=== PATIENT | female | born 1960 | race Caucasian/White ===

== ENCOUNTER 2021-07-23 14:30 | Observation (INO) ==
[2021-07-23 16:41] LABS: Basophils # (auto) 0.02 K/uL (0-0.2); Basophils % (auto) 0.3 %; Eosinophils # (auto) 0.06 K/uL (0-0.5); Eosinophils % (auto) 0.9 %; Hematocrit (blood only) 43.2 % (37-47); Hemoglobin 14.1 g/dL (12.0-16.0); Immature Granulocytes # (auto) 0.01 K/uL (0.00-0.02); Immature Granulocytes % (auto) 0.1 %; Lymphocytes # (auto) 1.76 K/uL (1.2-3.4); Lymphocytes % (auto) 25.1 %; Mean Corpuscular Hemoglobin 29.3 pg (25-34); Mean Corpuscular Hgb Conc 32.6 g/dL (32-36); Mean Corpuscular Volume 89.8 fL (80-100); Mean Platelet Volume 8.5 fL (7.4-10.4); Monocytes # (auto) 0.38 K/uL (0.11-0.59); Monocytes % (auto) 5.4 %; Neutrophils # (auto) 4.78 K/uL (1.4-6.5); Neutrophils % (auto) 68.2 %; Platelet Count 284 K/uL (130-400); RDW Coefficient of Variation 13.6 % (11.5-14.5); RDW Standard Deviation 45.2 fL (36.4-46.3); Red Blood Count 4.81 M/uL (4.2-5.4); White Blood Count 7.01 K/uL (4.8-10.8)
[2021-07-23 16:49] LABS: Appearance Urine Clear (Clear); Bacteria Urine Automated Negative (Negative); Bilirubin Urine Negative (Negative); Blood Urine Trace (Negative); Cast Urine Automated 0 /lpf (0-5); Color Urine Yellow; Glucose Urine UA Negative (Negative); Ketones Urine Negative (Negative); Leukocyte Esterase Urine 1+ (Negative); Nitrite Urine Negative (Negative); Protein Urine Negative (Negative); RBC Urine Automated 0-4 /hpf (0-4); Specific Gravity Urine 1.011 (1.000-1.030); Urobilinogen Urine Negative (Negative)
[2021-07-23 16:57] LABS: Albumin Level 4.1 gm/dl (3.4-5.0); Calcium 9.5 mg/dl (8.5-10.1); Creatinine Clr Calc Pharmacy 75.7 ml/min; Potassium 3.6 mmol/L (3.5-5.1)
--- NOTE | 2021-07-23 16:59 | CT Scan Report ---
CT OF THE HEAD WITHOUT CONTRAST CLINICAL HISTORY: Confusion. COMPARISON STUDY: No previous studies for comparison. CT DOSE: 537.48 mGy.cm TECHNIQUE: Helical axial images of the head were obtained without IV contrast. Automated exposure con trol was utilized for the study. A dose lowering technique was utilized adhering to the principles o f ALARA. FINDINGS: No acute intracranial hemorrhage, midline shift or mass effect is present. The ventricular system is unremarkable. The basal cisterns are patent. No extra-axial collections are present. There are no findings to suggest acute dural sinus thrombosis or acute territorial infarct. No significant calvarial abnormalities are present. There is mild ethmoid sinus mucosal thickening. IMPRESSION: No acute intracranial findings. ACT 112: Negative or not required by law. Electronically signed by: Maksim Coffey M.D. 07/23/2021 4:57 PM
[2021-07-23 17:00] LABS: Albumin Globulin Ratio 1.1 (0.9-2); Bilirubin,Total 0.5 mg/dl (0.2-1); Globulin 3.9 gm/dl (2.5-4.0)
--- NOTE | 2021-07-23 20:35 | Emergency Department Note ---
Impression & Plan Acute confusion, Amnesia, Stroke-like symptoms, Hypertension ED Provider Note NAME: YESSENIA LUCIA AGE: 61 SEX: F : 1960 ARRIVES VIA: Walk-In INFORMANT: [Patient][daughter] ED PROVIDER(S): [Jose Luis White MD] CHIEF COMPLAINT: Confusion HISTORY OF PRESENT ILLNESS: The patient is a 61-year-old female presents to the ED with confusion and amnesia. Her symptoms have been ongoing for the entire day. The patient keeps asking her family the same questions and cannot seem to retain any memory. She went to work today even though, she was not scheduled for work. The patient admits that she cannot remember the day. The daughter thought the patient was staggering a bit today as well, no one- sided weakness noted She has been repeating herself all day. She has appeared confused at times. No issues with her speech, she has not had chest pain or shortness of breath. She has not suffered recent trauma. The patient admits to some stress in that her 4 months ago although, she does not think the is related to her presentation. She has not taken her hydrochlorothiazide for blood pressure in several weeks. 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 The patient is not vaccinated for COVID-19 or influenza. REVIEW OF SYSTEMS: See HPI for pertinent positives and negatives. A total of ten systems were reviewed and were otherwise negative. PMHx/PSHx: See Below SOCIAL HISTORY: See Below. PHYSICAL EXAM: GENERAL: Patient is in no acute distress. HEENT: No acute trauma, normocephalic atraumatic, mucous membranes moist, no nasal congestion, no scleral icterus. NECK: No stridor, no adenopathy, no meningismus, trachea is midline. LUNGS: Clear to auscultation bilaterally, no wheeze, no rhonchi, breath sounds equal. HEART: Without murmurs gallops or rubs, regular rate and rhythm. ABDOMEN: Soft, nontender, bowel sounds positive, no hernias, no peritonitis. EXTREMITIES: No cyanosis or edema, full range of motion of all the joints without pain or difficulty, no signs for acute trauma. NEUROLOGIC: Oriented x 3, no acute motor or sensory deficits, no focal weakness. No extremity drift or cerebellar dysfunction. No speech slur or facial droop. SKIN: No rash, no jaundice, no diaphoresis. DIFFERENTIAL DIAGNOSIS: Infection, dehydration, metabolic abnormality, hypo/hyperglycemia, electrolyte disturbance, anemia, hypoxia, cardiac sources, intracerebral event, toxicologic issues, stroke, TIA, transient global amnesia, as well as other pathologies. EMERGENCY DEPARTMENT COURSE/PROCEDURES: ECG: Indication was possible stroke. ECG shows a normal sinus rhythm with rate of 73. No ST elevation, no PVCs. There is some poor R wave progression. QTC is 447. Continuous Cardiac Monitoring: An order was placed for continuous cardiac monitoring. The monitor shows a rate of 98 with normal sinus rhythm. MEDICAL DECISION MAKING: There is no leukocytosis or concerning anemia. There is a normal platelet count. No significant electrolyte abnormality or kidney failure. No worrisome liver enzyme elevation. Urinalysis does not show evidence for infection. Covid testing returned negative. Brain CT shows no acute bleed or mass-effect. ECG shows a normal sinus rhythm, no dysrhythmia or ischemia. On exam, there were no focal neurologic findings. Patient was a bit hypertensive, she was not toxic or febrile. No speech slur noted. The patient was given oral aspirin. She has been resting comfortably. Patient presents with some confusion and amnesia. I discussed the case with neurology. The patient's presentation is consistent with transient global amnesia. Further work-up though is required. Hospitalization was felt warranted. I spoke to the patient about a hospital stay, she did consent. I spoke to case management. The on-call hospitalist was consulted. Past Med/Surg History Medical History Hypertension Social History Smoking Status: Never smoker Feels Safe at Home: Yes Allergies Allergies Allergy/AdvReac Type Severity Reaction Status Date / Time erythromycin base AdvReac Severe Gastrointestinal Verified 07/23/21 20:37 Upset Home Meds Home Medications Medication Instructions Recorded Confirmed guaifenesin 1,200 mg tablet, 1,200 mg PO Q12H PRN 07/23/21 07/23/21 extended release 12 hr (Mucinex) hydrochlorothiazide 50 mg tablet 50 mg PO DAILY 07/23/21 07/23/21 potassium chloride 1 dose PO DAILY 07/23/21 07/23/21 Results & Data (ED) Vital Signs Vital Signs - 24 hr 07/23/21 15:01 Temperature 36.9 C Temperature Source Temporal Artery Scan Pulse Rate 108 H Respiratory Rate 18 Blood Pressure 170/88 H Blood Pressure Mean 115 Pulse Oximetry 98 Oxygen Delivery Method Room Air Sepsis Recent Fever Within 48 Hours No Sepsis New/Unexplained Change in Mental Status N/A Sepsis Action Taken by Nursing No Action Required Home Medications Current Medication List: was personally reviewed by me Laboratory Data Attestation: I reviewed the patient's lab results. Result diagrams: 07/23/21 16:27 07/23/21 16:27 Lab Results 07/23/21 07/23/21 07/23/21 Range/Units 16:27 16:27 16:27 WBC 7.01 (4.8-10.8) K/uL RBC 4.81 (4.2-5.4) M/uL Hgb 14.1 (12.0-16.0) g/dL Hct 43.2 (37-47) % MCV 89.8 (80-100) fL MCH 29.3 (25-34) pg MCHC 32.6 (32-36) g/dL RDW Std Deviation 45.2 (36.4-46.3) fL RDW Coeff of Tanisha 13.6 (11.5-14.5) % Plt Count 284 (130-400) K/uL MPV 8.5 (7.4-10.4) fL Immature Gran % (Auto) 0.1 % Neut % (Auto) 68.2 % Lymph % (Auto) 25.1 % Barbour % (Auto) 5.4 % Eos % (Auto) 0.9 % Baso % (Auto) 0.3 % Neut # (Auto) 4.78 (1.4-6.5) K/uL Lymph # (Auto) 1.76 (1.2-3.4) K/uL Barbour # (Auto) 0.38 (0.11-0.59) K/uL Eos # (Auto) 0.06 (0-0.5) K/uL Baso # (Auto) 0.02 (0-0.2) K/uL Immature Gran # (Auto) 0.01 (0.00-0.02) K/uL Sodium 141 (136-145) mmol/L Potassium 3.6 (3.5-5.1) mmol/L Chloride 111 H (98-107) mmol/L Carbon Dioxide 26 (21-32) mmol/L Anion Gap 4.0 (3-11) BUN 9 (7-18) mg/dl Creatinine 0.83 (0.6-1.2) mg/dl Est Cr Clr Drug Dosing 75.7 ml/min Est GFR ( Amer) 87.0 ml/min Est GFR (Non-Af Amer) 75.0 ml/min BUN/Creatinine Ratio 11.0 (10-20) Glucose 102 H (70-99) mg/dl Calcium 9.5 (8.5-10.1) mg/dl Total Bilirubin 0.5 (0.2-1) mg/dl AST 30 (15-37) U/L ALT 43 (12-78) Alkaline Phosphatase 71 (45-117) U/L Total Protein 8.0 (6.4-8.2) gm/dl Albumin 4.1 (3.4-5.0) gm/dl Globulin 3.9 (2.5-4.0) gm/dl Albumin/Globulin Ratio 1.1 (0.9-2) Urine Color Yellow Urine Appearance Clear (Clear) Urine pH 7.0 (4.5-7.5) Ur Specific Mobile 1.011 (1.000-1.030) Urine Protein Negative (Negative) Urine Glucose (UA) Negative (Negative) Urine Ketones Negative (Negative) Urine Blood Trace H (Negative) Urine Nitrite Negative (Negative) Urine Bilirubin Negative (Negative) Urine Urobilinogen Negative (Negative) Ur Leukocyte Esterase 1+ H (Negative) Urine WBC (Auto) 1-5 (0-5) /hpf Urine RBC (Auto) 0-4 (0-4) /hpf U Hyaline Cast (Auto) 0 (0-5) /lpf U Epithel Cells (Auto) 10-20 H (0-5) /lpf Urine Bacteria (Auto) Negative (Negative) SARS-CoV-2, RNA, NAAT (NEGATIVE) 07/23/21 Range/Units 21:24 WBC (4.8-10.8) K/uL RBC (4.2-5.4) M/uL Hgb (12.0-16.0) g/dL Hct (37-47) % MCV (80-100) fL MCH (25-34) pg MCHC (32-36) g/dL RDW Std Deviation (36.4-46.3) fL RDW Coeff of Tanisha (11.5-14.5) % Plt Count (130-400) K/uL MPV (7.4-10.4) fL Immature Gran % (Auto) % Neut % (Auto) % Lymph % (Auto) % Barbour % (Auto) % Eos % (Auto) % Baso % (Auto) % Neut # (Auto) (1.4-6.5) K/uL Lymph # (Auto) (1.2-3.4) K/uL Barbour # (Auto) (0.11-0.59) K/uL Eos # (Auto) (0-0.5) K/uL Baso # (Auto) (0-0.2) K/uL Immature Gran # (Auto) (0.00-0.02) K/uL Sodium (136-145) mmol/L Potassium (3.5-5.1) mmol/L Chloride (98-107) mmol/L Carbon Dioxide (21-32) mmol/L Anion Gap (3-11) BUN (7-18) mg/dl Creatinine (0.6-1.2) mg/dl Est Cr Clr Drug Dosing ml/min Est GFR ( Amer) ml/min Est GFR (Non-Af Amer) ml/min BUN/Creatinine Ratio (10-20) Glucose (70-99) mg/dl Calcium (8.5-10.1) mg/dl Total Bilirubin (0.2-1) mg/dl AST (15-37) U/L ALT (12-78) Alkaline Phosphatase (45-117) U/L Total Protein (6.4-8.2) gm/dl Albumin (3.4-5.0) gm/dl Globulin (2.5-4.0) gm/dl Albumin/Globulin Ratio (0.9-2) Urine Color Urine Appearance (Clear) Urine pH (4.5-7.5) Ur Specific Mobile (1.000-1.030) Urine Protein (Negative) Urine Glucose (UA) (Negative) Urine Ketones (Negative) Urine Blood (Negative) Urine Nitrite (Negative) Urine Bilirubin (Negative) Urine Urobilinogen (Negative) Ur Leukocyte Esterase (Negative) Urine WBC (Auto) (0-5) /hpf Urine RBC (Auto) (0-4) /hpf U Hyaline Cast (Auto) (0-5) /lpf U Epithel Cells (Auto) (0-5) /lpf Urine Bacteria (Auto) (Negative) SARS-CoV-2, RNA, NAAT NEGATIVE (NEGATIVE) Administered Medications Discontinued Medications Aspirin (Aspirin Chew 324 Mg) 324 mg PO NOW STA Stop: 07/23/21 20:39 Last Admin: 07/23/21 21:30 Dose: 324 mg Documented by: [id number] Imaging Data Radiologist's Impression: Head CT 07/23/21 16:39 CT OF THE HEAD WITHOUT CONTRAST CLINICAL HISTORY: Confusion. COMPARISON STUDY: No previous studies for comparison. CT DOSE: 537.48 mGy.cm TECHNIQUE: Helical axial images of the head were obtained without IV contrast. Automated exposure control was utilized for the study. A dose lowering technique was utilized adhering to the principles of ALARA. FINDINGS: No acute intracranial hemorrhage, midline shift or mass effect is present. The ventricular system is unremarkable. The basal cisterns are patent. No extra-axial collections are present. There are no findings to suggest acute dural sinus thrombosis or acute territorial infarct. No significant calvarial abnormalities are present. There is mild ethmoid sinus mucosal thickening. IMPRESSION: No acute intracranial findings. ACT 112: Negative or not required by law. Electronically signed by: Maksim Coffey M.D. 07/23/2021 4:57 PM Discharge Plan Visit Data Chief Complaint: Confusion Stated Complaint: CONFUSION, NECK AND BACK PAIN ED Provider: Jose Luis White Discharge Problem: Acute confusion, Amnesia, Stroke-like symptoms, Hypertension Patient Disposition: Admitted As Inpatient Condition: Fair Forms Stand Alone Forms: My [facility] Prescriptions Prescriptions: No Action hydrochlorothiazide 50 mg Tablet 50 mg PO DAILY RF: 0 Mucinex 1,200 mg Tablet Extended Release 12hr 1,200 mg PO Q12H PRN (Reason: Cold Symptoms) RF: 0 potassium chloride 1 dose PO DAILY RF: 0 Referrals Referrals: PCP,NO [Physician] -
[2021-07-23] MEDS ORDERED: ASPIRIN CHEW 324 MG PO STA (20:38)
[2021-07-23 23:43] LABS: Lyme Ab IgG w/WB Rflx Negative (Negative); Lyme Ab IgM w/WB Rflx Negative (Negative)
[2021-07-23 23:50] LABS: Thyroid Stimulating Hormone 0.916 uIu/ml (0.300-4.500)
--- NOTE | 2021-07-24 | History & Physical Report ---
Date of Service July 23, 2021 Assessment & Plan (1) Acute confusion: Plan: 61 F with hx of HTN (HCTZ, KCl) presenting with acute, first-time episode of confusion and amnesia: Confusion/Amnesia/Stroke-like symptoms Unclear etiology at present. Concern for TIA/stroke vs. transient global amnesia: -Head CT negative -CBC, BMP normal; UA nondiagnostic -TSH wnl -Negative Lyme IgG, IgM serology -Admitted to med-surg telemetry (c/f for undiagnosed atrial fibrillation) * Hypercoagulable workup (SLE, beta-2 glycoprotein IgG, IgM, cardiolipin) ordered, pending * Serum B12, folate pending * ESR, ADELAIDA pending * CXR pending (did not receive in ED) * MRI brain w/o contrast; read pending (no acute findings per STAT-RAD) * K+ 3.6: 20 mEq KCl PO x 2 * Neurology consult placed for further evaluation Hypertension Pt noncompliant with prescribed HCTZ x 2 months. Low suspicion of hypertensive encephalopathy given pt's reported normal home BPs, normal Cr on BMP. * Held home HCTZ, KCl * Not hypertensive at present; continue to monitor (2) Amnesia: (3) Stroke-like symptoms: (4) Hypertension: History of Present Illness Chief Complaint: Confusion Primary Care Provider: Alfred Dukes MD Caridad is a 61 year woman with a PMH of HTN (on HCTZ 50 mg) who was brought to the hospital by her daughter with an acute episodic presentation of confusion and amnesia of less than 1 day's duration. Patient interview impaired by limited memory of today's events- she remembers that she had a bowl of cereal in the morning and that she parked her car in the parking lot at work. Otherwise she has no other recollection of what she did today. Per her daughter, Brittany, who is bedside: the patient prepared for work as usual without any abnormal behavior. Some time later while at work, Brittany received a call from her mother's coworkers reporting strange behavior (repetitive statements, forgetting what she'd said minutes earlier, abnormal staggering gait). According to her daughter's conversations with her mother's coworkers, the patient had forgotten she was not scheduled to come in to work today as well. When daughter tried to take mother to her car, she did not recognize the car she drove to work or her clothes/other belongings inside and insisted otherwise for about 10 minutes before going home and presenting to the ED. Upon initial presentation to ED yodit, pt. unable to find ID card, which was in her hand, according to daughter who witnessed the event. ED: vitals notable for bp of 170/88, hr of 108. Initial labs (CBC, BMP, UA) nondiagnostic. Pt, received one-time aspirin dose, head CT (normal) Daughter denies witnessing any similar prior episodes. She notes at least 2 incidents a few months ago where her mother "stared into space and dropped her cup." She also notes that her mother has appeared more fatigued, particularly around dinnertime, since her . Pt. denies focal weakness, dysuria, dysphagia and vomiting/diarrhea. Pt. reports she ran out of HCTZ approximately 2 months ago and has not had time to refill her prescription. She reports that she routinely checks her BPs at home with cuff, with average pressures of 120s/90s. She also stopped taking her KCl after running out of HCTZ because she takes them together. According to daughter, mom has been lying about taking HCTZ the past 2 months. Patient's four months ago. According to her daughter, she returned to work after 1 week and has been working non-stop since. PMH also notable for rheumatic fever as a child, and hx of "hole in heart" that resolved before she turned 18. ROS+ only for fatigue and headache, both of which she attributes to her hunger. Patient lives at home with daughter and grandson and a dog. 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 Rarely drinks alcohol. Never smoker. She is not vaccinated against COVID-19. Allergies Allergy/AdvReac Type Severity Reaction Status Date / Time erythromycin base AdvReac Severe Gastrointestinal Verified 07/23/21 20:37 Upset Home Medications Medication Instructions Recorded Confirmed Type guaifenesin 1,200 mg tablet, 1,200 mg PO Q12H PRN 07/23/21 07/23/21 History extended release 12 hr (Mucinex) hydrochlorothiazide 50 mg tablet 50 mg PO DAILY 07/23/21 07/23/21 History potassium chloride 1 dose PO DAILY 07/23/21 07/23/21 History Past Med/Surg History Medical History Hypertension Social History Smoking Status: Never smoker Hx Alcohol Use: No Hx Substance Use: No Preferred Language: Kinyarwanda Communication Ability: Effective Aluminum Pourer Required: No Beliefs That Will Affect Care: None Current Living Situation: Family Current Living Situation Comment: with daughter Feels Safe at Home: Yes Assistive Devices: None Review of Systems Review of Systems: All systems reviewed & are unremarkable except as noted in HPI & below Physical Exam Constitutional: well developed and well nourished; no acute distress Eyes: PERRL, conjunctivae normal, anicteric sclerae ENMT: external ear and nose normal, oropharynx normal Respiratory: normal respiratory effort, lungs clear to auscultation Cardiovascular: RRR, no murmur, no edema Gastrointestinal (Abdomen): normal bowel sounds, soft, nontender, no hepatosplenomegaly Musculoskeletal: no cyanosis or clubbing, extremities motor strength 5/5 Skin: no rashes, warm and dry Neurologic: patellar DTR's 2+ bilat, sensation intact and PERRL, EOMI, accommodation nl, no face palsy, no dysarthria normal touch/pain/proprioception, CN's II-XI intact bilaterally, moves all extremities and awake; no focal motor deficits Motor/Sensory: no tremor and normal movement Gait: no ataxic gait, no shuffling gait and no wide-based gait Coordination: normal [id number] test and normal Romberg test Psychiatric: Orientation: alert, oriented to person, oriented to time and cooperative; + not oriented to place (pt thought she was at [facility]) Results & Data Results & Data ([facility]) Vital Signs (Past 12 Hours) Vital Signs Temp Pulse Resp BP Pulse Ox 07/23/21 15:01 36.9 C 108 H 18 170/88 H 98 Code Status & VTE Plan VTE Prophylaxis Plan VTE Prophylaxis will be ordered: Yes Supervising Physician Co-Signing Physician Notes Attending addendum: I have physically seen this patient, have supervised the medical residents activities, and agree with the H&P unless as otherwise noted. Assessment and Plan: Confusion/amnesia/strokelike symptoms- Differential improving not limited to: TIA, TGA, encephalopathy, infection versus metabolic The patient will be admitted to telemetry for serial cardiac enzymes, serial EKG's, cardiac rhythm monitoring and a 2-D echocardiogram with Dopplers. Stroke without TPA order set Start aspirin 81 mg daily after 324 loading dose MRI brain without contrast Arterial hypercoagulable work-up Check B12, folate, TSH, ESR, ADELAIDA Permissive hypertension Remaining orders and notations as noted Resident Activity Tracking Resident Involvement: Resident Care Provided Care Provided: Adult Hospital Medicine (1) Hypertension Hypertension type: unspecified Qualified Code(s): I10 - Essential (primary) hypertension
[2021-07-24] MEDS ORDERED: THIAMINE HCL 500 MG in SODIUM CHLORIDE 0.9% 50 ML IV STA (03:37)
[2021-07-24 04:28] LABS: Magnesium 2.4 mg/dl (1.8-2.4)
[2021-07-24] MEDS: POTASSIUM CHLORIDE CRTAB 20 MEQ TABCR PO SCH ×2 (05:48→08:22)
[2021-07-24 06:16] LABS: Folate (Folic Acid) > 20.00 ng/ml (>5.38); Vitamin B12 379 pg/ml (193-986)
--- NOTE | 2021-07-24 07:14 | Magnetic Resonance Report ---
MRI OF THE BRAIN WITHOUT IV CONTRAST CLINICAL HISTORY: Change in mental status. Amnesia. COMPARISON STUDY: CT of the brain dated 07/23/2021. TECHNIQUE: MRI of the brain was performed utilizing various T1 and T2-weighted sequences in the axial , sagittal, and coronal planes. IV contrast was not administered for this examination. FINDINGS: Brain parenchyma: There is mild microangiopathic change. There is no hemorrhage or mass effect. There is no restricted diffusion to suggest acute ischemia. Rodriguez-white matter differentiation is preserved . No extra-axial fluid collection is seen. The cerebellar tonsils are normal in configuration. Ventricles, sulci, and cisterns: Normal in configuration. Pituitary and sella: Unremarkable. Intracranial vasculature: Normal flow voids are maintained at the skull base. Orbits: The bony orbits are grossly intact. Orbital contents are normal in appearance. Sinuses and mastoids: There is mild to moderate mucosal thickening within the maxillary antra. Small air-fluid levels are noted. Mild to moderate mucosal thickening is also seen in the anterior ethmoid sinuses. There is mild mucosal thickening in the frontal sinuses. The mastoid air cells are clear. Calvarium: Unremarkable. Cervical cord: Partially visualized cervical spinal cord is normal in morphology and signal intensity . IMPRESSION: 1. No acute intracranial abnormality. 2. Paranasal sinus disease as above. ACT 112: Negative or not required by law. Electronically signed by: Jose Luis Castano M.D. 07/24/2021 7:13 AM
--- NOTE | 2021-07-24 07:19 | XRay Report ---
XR chest 2V PA/lateral CLINICAL HISTORY: Altered mental status. COMPARISON STUDY: No previous studies for comparison. FINDINGS: Lung volumes are normal. Lungs are clear. There is no pneumothorax or pleural effusion. Car diac size is normal. Mediastinal contours are normal. There is no evidence for pulmonary edema. IMPRESSION: No acute cardiopulmonary findings. ACT 112: Negative or not required by law. Electronically signed by: Maksim Coffey M.D. 07/24/2021 7:18 AM
--- NOTE | 2021-07-24 08:03 | Hospitalist Progress Note ---
Date of Service July 24, 2021 Assessment & Plan (1) Acute confusion: Plan: 61 F with hx of HTN (HCTZ, KCl) presenting with acute, first-time episode of confusion and amnesia: Confusion/Amnesia/Stroke-like symptoms Unclear etiology at present. Concern for TIA/stroke vs. transient global amnesia: -Head CT negative -CBC, BMP normal; UA nondiagnostic -TSH wnl -Negative Lyme IgG, IgM serology -Admitted to med-surg telemetry (c/f for undiagnosed atrial fibrillation) * Hypercoagulable workup (SLE, beta-2 glycoprotein IgG, IgM, cardiolipin) ordered, pending * Serum B12, folate pending * ESR, ADELAIDA pending * CXR pending (did not receive in ED) * MRI brain w/o contrast; read pending (no acute findings per STAT-RAD) * K+ 3.6: 20 mEq KCl PO x 2 * Neurology consult placed for further evaluation Hypertension Pt noncompliant with prescribed HCTZ x 2 months. Low suspicion of hypertensive encephalopathy given pt's reported normal home BPs, normal Cr on BMP. * Held home HCTZ, KCl * Not hypertensive at present; continue to monitor (2) Amnesia: (3) Stroke-like symptoms: (4) Hypertension: Admission and Anticipated Discharge Date Admission Date: July 23, 2021 Results & Data Results & Data ([facility]) Vital Signs (Past 12 Hours) Vital Signs Pulse Resp BP Pulse Ox 07/24/21 04:04 68 18 140/94 97 07/24/21 00:28 72 18 138/78 98 07/23/21 22:31 70 18 140/90 96 (1) Hypertension Hypertension type: unspecified Qualified Code(s): I10 - Essential (primary) hypertension
[2021-07-24 08:19] LABS: Basophils # (auto) 0.03 K/uL (0-0.2); Basophils % (auto) 0.5 %; Eosinophils # (auto) 0.26 K/uL (0-0.5); Eosinophils % (auto) 4.2 %; Hematocrit (blood only) 41.5 % (37-47); Hemoglobin 13.6 g/dL (12.0-16.0); Immature Granulocytes # (auto) 0.01 K/uL (0.00-0.02); Immature Granulocytes % (auto) 0.2 %; Lymphocytes % (auto) 31.9 %; Mean Corpuscular Hemoglobin 29.2 pg (25-34); Mean Corpuscular Hgb Conc 32.8 g/dL (32-36); Mean Corpuscular Volume 89.2 fL (80-100); Monocytes # (auto) 0.82 K/uL (0.11-0.59); Monocytes % (auto) 13.1 %; Neutrophils # (auto) 3.14 K/uL (1.4-6.5); Neutrophils % (auto) 50.1 %; Platelet Count 264 K/uL (130-400); RDW Coefficient of Variation 13.6 % (11.5-14.5); RDW Standard Deviation 44.6 fL (36.4-46.3); Red Blood Count 4.65 M/uL (4.2-5.4); White Blood Count 6.26 K/uL (4.8-10.8)
[2021-07-24 08:25] LABS: Calcium 8.9 mg/dl (8.5-10.1); Creatinine Clr Calc Pharmacy 89.8 ml/min; Est GFR (African American) 106.9 ml/min; Est GFR (Non-African American) 92.2 ml/min; Potassium 3.8 mmol/L (3.5-5.1)
[2021-07-24 09:21] LABS: Amphetamines+Metham, Urine Neg (Neg); Barbiturates, Urine Neg (Neg); Benzodiazepine, Urine Neg (Neg); Cocaine, Urine Neg (Neg); MDMA (Ecstacy), Urine Neg (Neg); Methadone, Urine Neg (Neg); Opiate, Urine Neg (Neg); Phencyclidine, Urine Neg (Neg)
--- NOTE | 2021-07-24 17:28 | Family Medicine Progress Note ---
Date of Service July 24, 2021 Assessment & Plan Admission and Anticipated Discharge Date Admission Date: July 23, 2021 Results & Data ([facility]) Vital Signs (Past 12 Hours) Vital Signs Pulse Resp BP Pulse Ox 07/24/21 14:59 67 16 129/84 100 07/24/21 13:12 77 18 127/84 98 07/24/21 11:10 70 18 127/84 97 07/24/21 08:25 96 H 18 140/94 96
--- NOTE | 2021-07-24 17:57 | Discharge Summary ---
Date of Service July 24, 2021 Admission HPI Per Admitting Provider Caridad is a 61 year woman with a PMH of HTN (on HCTZ 50 mg) who was brought to the hospital by her daughter with an acute episodic presentation of confusion and amnesia of less than 1 day's duration. Patient interview impaired by limited memory of today's events- she remembers that she had a bowl of cereal in the morning and that she parked her car in the parking lot at work. Otherwise she has no other recollection of what she did today. Per her daughter, Brittany, who is bedside: the patient prepared for work as usual without any abnormal behavior. Some time later while at work, Brittany received a call from her mother's coworkers reporting strange behavior (repetitive statements, forgetting what she'd said minutes earlier, abnormal staggering gait). According to her daughter's conversations with her mother's coworkers, the patient had forgotten she was not scheduled to come in to work today as well. When daughter tried to take mother to her car, she did not recognize the car she drove to work or her clothes/other belongings inside and insisted otherwise for about 10 minutes before going home and presenting to the ED. Upon initial presentation to ED yodit, pt. unable to find ID card, which was in her hand, according to daughter who witnessed the event. ED: vitals notable for bp of 170/88, hr of 108. Initial labs (CBC, BMP, UA) nondiagnostic. Pt, received one-time aspirin dose, head CT (normal) Daughter denies witnessing any similar prior episodes. She notes at least 2 incidents a few months ago where her mother "stared into space and dropped her cup." She also notes that her mother has appeared more fatigued, particularly around dinnertime, since her . Pt. denies focal weakness, dysuria, dysphagia and vomiting/diarrhea. Pt. reports she ran out of HCTZ approximately 2 months ago and has not had time to refill her prescription. She reports that she routinely checks her BPs at home with cuff, with average pressures of 120s/90s. She also stopped taking her KCl after running out of HCTZ because she takes them together. According to daughter, mom has been lying about taking HCTZ the past 2 months. Patient's four months ago. According to her daughter, she returned to work after 1 week and has been working non-stop since. PMH also notable for rheumatic fever as a child, and hx of "hole in heart" that resolved before she turned 18. ROS+ only for fatigue and headache, both of which she attributes to her hunger. Patient lives at home with daughter and grandson and a dog. 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 Rarely drinks alcohol. Never smoker. She is not vaccinated against COVID-19. Admission Exam Per Admitting Provider Constitutional: well developed and well nourished; no acute distress Eyes: PERRL, conjunctivae normal, anicteric sclerae ENMT: external ear and nose normal, oropharynx normal Respiratory: normal respiratory effort, lungs clear to auscultation Cardiovascular: RRR, no murmur, no edema Gastrointestinal (Abdomen): normal bowel sounds, soft, nontender, no hepatosplenomegaly Musculoskeletal: no cyanosis or clubbing, extremities motor strength 5/5 Skin: no rashes, warm and dry Neurologic: patellar DTR's 2+ bilat, sensation intact and PERRL, EOMI, accommodation nl, no face palsy, no dysarthria normal touch/pain/proprioception, CN's II-XI intact bilaterally, moves all extremities and awake; no focal motor deficits Motor/Sensory: no tremor and normal movement Gait: no ataxic gait, no shuffling gait and no wide-based gait Coordination: normal wcqkdu-de-ivvy test and normal Romberg test Psychiatric: Orientation: alert, oriented to person, oriented to time and cooperative; + not oriented to place (pt thought she was at [facility]) Principal Diagnosis Transient Global Amnesia Discharge Exam Constitutional WD/WN, vitals as above Eyes PERRL, conjunctivae normal, anicteric sclerae Neck trachea midline, no thyromegaly Respiratory normal respiratory effort, lungs clear to auscultation Cardiovascular RRR, no murmur, no edema Heart Sounds: normal S1 and normal S2 Gastrointestinal (Abdomen) normal bowel sounds, soft, nontender, no hepatosplenomegaly Musculoskeletal no cyanosis or clubbing, extremities motor strength 5/5 Gait: normal gait Skin no rashes, warm and dry Neurologic patellar DTR's 2+ bilat, sensation intact and PERRL, EOMI, accommodation nl, no face palsy, no dysarthria CN 2-12 intact b/l Psychiatric A+Ox3, euthymic affect Discharge Data Allergies Allergy/AdvReac Type Severity Reaction Status Date / Time erythromycin base AdvReac Severe Gastrointestinal Verified 07/23/21 20:37 Upset Consultations 07/23/21 20:33 ED Decision to Admit Stat 07/24/21 04:25 Consult Neurology Routine Ordered Studies 07/23/21 16:39 CT head/brain wo con Stat 07/23/21 23:21 MR brain wo con Stat Hospital Course (1) Acute confusion: 61 F with hx of HTN (HCTZ, KCl) presenting with acute, first-time episode of confusion and amnesia: Transient Global Amnesia Unclear etiology. Concern for TIA/stroke vs. transient global amnesia. Head CT negative, Brain MRI negtive, CXR negative. CBC, BMP normal; UA nondiagnostic. TSH wnl. Negative Lyme IgG, IgM serology. Admitted to med-surg telemetry. B12 folate WNL. PHQ9 score negative. COVID neg. Physical exam unremarkable. Neurology consult placed, will f/u in outpatient. Please follow up with PCP. Hypertension Pt noncompliant with prescribed HCTZ x 2 months. BP normal in hospital, ok to hold home meds for now. (2) Amnesia: (3) Stroke-like symptoms: (4) Hypertension: (5) Transient global amnesia: Total Time Total Time Spent Total Time Spent (In Minutes): see attending attestation Discharge Plan Discharge Items Patient Disposition: Home - Self-Care Reason For Visit: CONFUSION, NECK AND BACK PAIN Discharge Diagnosis: Transient Global Amnesia Condition on Discharge: Fair Activity: Resume your previous activity Non-emergency contact: Primary Care Provider Call non-emergency contact if: you have any medication questions and your symptoms worsen Follow-up/Referrals: Rashad Coulter CRNP [Primary Care Provider] - 07/29/21 8:00 am (To become established with primary care with Arthur Jay. ) Mann Santos MD [Physician] - Diet: Regular Addtl Attending Provider Instructions: You were admitted to the hospital for Transient Global Amnesia. Past a certain point your brain stopped forming memories, after a period of time you started making memories again, it is unlikely you will recover your memories from that time. You did not have a stroke, bleeding, infection, electrolyte abnormality, thyroid abnormality, or depression. This condition can be related to migraines. We have scheduled an appointment with Neurology to further evaluate your condition. A discharge summary will be sent to your primary care physician to ensure continuity of care. Please bring this discharge summary with you to your next office appointment so that your provider can review it at that time. Follow-up appointments: We have requested a follow-up appointment with your primary care physician within one week of discharge. Please call their office if you do not hear from them. We have requested a follow-up appointment with Neurology. Keep all your follow-up appointments as already scheduled. If you cannot make an appointment, notify your provider. Medications: Your medication list has been reviewed and reconciled upon discharge to ensure accuracy and continuity of care. An updated list of all your medications is included with your hospital discharge paperwork. Please review this list closely, and make note of any changes. Take your medications as instructed; do not skip a dose of your medicines. Make sure all of your doctors know every medicine you are taking (including ziro-ivo-cusomnj medicines, vitamins, and supplements). Call your primary care provider before taking any new medicines (including lijd-yag-ofyeylo medicines, vitamins, and supplements), because some of these may interact with your current medications, or may make your symptoms worse. Tell your primary care provider if you cannot afford your medications. CONTACT YOUR PRIMARY CARE PROVIDER if you experience any of the following: Falls, Gait unsteadiness, Loss of Consciousness Fever, Trouble Breathing Difficulty following your treatment plan, or difficulty taking medications CALL 911 OR GO TO THE EMERGENCY DEPARTMENT if you experience any of the following: Sudden, severe abdominal pain or nausea/vomiting Severe chest pain, or chest pain that radiates (moves) to your jaw or arm Sudden, severe shortness of breath or difficulty breathing Thank you for allowing us to participate in your care. Pending Studies at Discharge: No Stand-Alone Forms: My Hair Scynce, Smoking Cessation Medications and DC Order Prescriptions: Continued hydrochlorothiazide 50 mg Tablet 50 mg PO DAILY RF: 0 Mucinex 1,200 mg Tablet Extended Release 12hr 1,200 mg PO Q12H PRN (Reason: Cold Symptoms) RF: 0 potassium chloride 1 dose PO DAILY RF: 0 Discharge Orders: Discharge Order (Routine); Ordered 07/24/21 Ordered By: Rachna Wynn Admission Data Admit Date/Time: 07/23/21 23:51 Attending Provider: Ashok Linares Admit Provider: Priscilla Hugo Primary Care Provider: Rashad Coulter. Other Providers: Maurisio Miramontes ; Mann Santos Other Interventions: Discharge Summary Assessment (RN) Last Done: 07/24/21 17:52 Supervising Physician Co-Signing Physician Notes I also saw the patient and confirmed wilkes portions of the history and physical examination. I agree with the impression and plan as noted in the resident documentation. In summary, 60-year-old female with history of headaches (question migrainous headaches) who had a time-limited episode of mild confusion of which she has no memory recall,with subsequent negative work-up (no metabolic abnormalities, no neurologic radiographic etiology, negative toxicology screen) and no focal neurologic sequelae, most consistent with transient global amnesia. She was functionally intact during the episode (she even drove herself to the hospital), but she has no recall of such. No previous episodes. She does have history of headaches and she did note that she had a headache the day previous, and she had a mild headache today until she had some food and coffee. CBC, BMP were unremarkable. Folate was greater than 20. B12 was 379. TSH 0.916. Antiphospholipid antibodies are pending. Lyme was negative. COVID-19 was negative. Chest x-ray was negative MRI of the brain was unremarkable except for some sinus thickening. CT of the head was unremarkable. Case was discussed with neurology by phone. Given normal work-up and normal neuro exam, okay for discharge with outpatient follow-up. The daughter has been living with the patient since the of her recently, so she will not be alone. She was on hydrochlorothiazide 50 mg plus potassium supplementation; she has been off both, and home blood pressures have been very reasonable. Upon my examination, 129/84. Recommend not resuming either medication; continue to monitor blood pressure at home. Outpatient follow-up with PCP. Resident Activity Tracking Resident Involvement: Resident Care Provided Care Provided: Adult Hospital Medicine
--- NOTE | 2021-07-24 18:17 | Electrocardiogram Report ---
Test Reason : Blood Pressure : / mmHG Vent. Rate : 073 BPM Atrial Rate : 073 BPM P-R Int : 120 ms QRS Dur : 082 ms QT Int : 406 ms P-R-T Axes : 068 018 044 degrees QTc Int : 447 ms Normal sinus rhythm No previous ECGs available Confirmed by Bruno Lee ([id number]) on 07/24/2021 6:16:58 PM Referred By: REFERRED SELF Confirmed By:Mika Lee
--- NOTE | 2021-07-25 05:00 | Billing Data ---
Date of Service July 25, 2021 Coding Level of Care Code INT OBSERVATION CARE 70M LVL 3
--- NOTE | 2021-07-25 08:52 | Neurology Consultation ---
Date of Consultation July 25, 2021 History of Present Illness Reason for Consultation: Patient discharged before seen in neurological consultation. Attending Physician: Ashok Linares DO Allergies Allergy/AdvReac Type Severity Reaction Status Date / Time erythromycin base AdvReac Severe Gastrointestinal Verified 07/23/21 20:37 Upset Home Medications Medication Instructions Recorded Confirmed Type guaifenesin 1,200 mg tablet, 1,200 mg PO Q12H PRN 07/23/21 07/23/21 History extended release 12 hr (Mucinex) hydrochlorothiazide 50 mg tablet 50 mg PO DAILY 07/23/21 07/23/21 History potassium chloride 1 dose PO DAILY 07/23/21 07/23/21 History Patient History Medical History Hypertension Social History Smoking Status: Never smoker Hx Alcohol Use: No Hx Substance Use: No Preferred Language: Kazakh Communication Ability: Effective Foot Press Operator Required: No Beliefs That Will Affect Care: None Current Living Situation: Family Current Living Situation Comment: with daughter Feels Safe at Home: Yes Assistive Devices: None PG Care Time/CCT Total # of Minutes Spent Total Time Spent with Patient: Total time spent is greater than 50% in coordination of care (as documented) at patient's floor/unit and/or counseling patient: Coding Level of Care Code None
[2021-07-29 07:12] LABS: Anti Cardiolipin Ab IgG <2.0 GPL-U/mL; Anti Cardiolipin Ab IgM <2.0 MPL-U/mL; Anti Nuclear Antibody Screen NEGATIVE (NEGATIVE); B2 Glycoprotein IgG <2.0 U/mL (<20.0); B2 Glycoprotein IgM <2.0 U/mL (<20.0); PTT LA Screen 33 sec (<=40)
== END 2021-07-24 17:52 | disposition home or self-care (01) ==
LOC: ED 14:30 → EDINP 23:51 → SUATTDRO 23:51 → INTOOBSV 23:51 → EDINP 07-24 04:10